=== PATIENT | female | born 1945 | race Caucasian/White ===

== ENCOUNTER 2018-11-30 07:40 | Emergency (ER) | payer MEDICARE, BC ==
[2018-11-30 07:50] VITALS: BP 169/126
[2018-11-30] MEDS ORDERED: Morphine 4 MG/ML VIAL (1 ml) 4 MG/ML VIAL IM ONE (08:14)
[2018-11-30] MEDS ORDERED: Lidocaine 2% 10 ML* VIAL INJ ONE (08:17)
[2018-11-30] MEDS ORDERED: Morphine 10 MG/ML VIAL (1 ml) ONE (08:18)
[2018-11-30] MEDS ORDERED: Lidocaine 2% PF * 5 ML VIAL ONE (08:21)
--- NOTE | 2018-11-30 08:55 | UC ---
Lower Extremity/Ankle HPI - HPI Summary HPI Summary: Left knee pain begain suddenly yesterday while standing in her home. No trauma or twisting. Typically she is very active and plays pickle ball 4x/wk. She then noticed a large joint swelling and she could not move. This morning she could barely move the knee again. No fever, immunocompromised status, not on chemo, not a diabetic. She has had arthroscopy on that knee for torn meniscus about 25 years ago. SHe is followed by [facility] for arthritis. She is on meloxicam. She denies blood thinners of any kind including aspirin. No prior gout. - History of Current Complaint Chief Complaint: UCLowerExtremity Stated Complaint: LEFT KNEE PAIN Time Seen by Provider: 11/30/18 07:42 Hx Obtained From: Patient, Family/Customer Care Team Coach ?: No Onset/Duration: Sudden Onset, Lasting Hours Severity Initially: Severe Severity Currently: Severe Pain Intensity: 10 Aggravating Factor(s): Standing, Ambulation Alleviating Factor(s): Rest Able to Bear Weight: No - Allergies/Home Medications Allergies/Adverse Reactions: Allergies Allergy/AdvReac Type Severity Reaction Status Date / Time No Known Allergies Allergy Verified 11/30/18 07:50 Home Medications: Home Medications Atorvastatin* [Lipitor*] 20 mg PO 1700 11/30/18 [History Confirmed 11/30/18] Ferrous Gluconate [Iron 27] 325 mg PO DAILY 11/30/18 [History Confirmed 11/30/18 ] Loratadine 10 mg PO DAILY 11/30/18 [History Confirmed 11/30/18] Meloxicam 7.5 mg PO DAILY 11/30/18 [History Confirmed 11/30/18] Multivitamin,Ther and Minerals [Vitamins & Minerals] 1 tab PO DAILY 11/30/18 [ History Confirmed 11/30/18] Ramipril 5 mg PO DAILY 11/30/18 [History Confirmed 11/30/18] PMH/Surg Hx/FS Hx/Imm Hx Previously Healthy: No - arthritis. - Surgical History Surgical History: Yes Surgery Procedure, Year, and Place: right knee - Family History Known Family History: Positive: Non-Contributory - Social History Lives: Alone Alcohol Use: Rare Substance Use Type: None Smoking Status (MU): Never Smoked Tobacco Review of Systems All Other Systems Reviewed And Are Negative: Yes Musculoskeletal: Positive: Arthralgia, Decreased ROM Physical Exam Triage Information Reviewed: Yes Appearance: Pain Distress, Thin Vital Signs: Initial Vital Signs Temp 98.2 F 11/30/18 07:43 Pulse 80 11/30/18 07:43 Resp 24 11/30/18 07:43 BP 169/126 11/30/18 07:43 Pulse Ox 100 11/30/18 07:43 Vital Signs Reviewed: Yes Eye Exam: Normal Eyes: Positive: Conjunctiva Clear ENT: Positive: Pharynx normal Neck: Positive: Supple, Nontender, No Lymphadenopathy Respiratory: Positive: Lungs clear, Normal breath sounds, No respiratory distress, No accessory muscle use. Negative: Respiratory distress, Decreased breath sounds, Accessory muscle use, Crackles, Rhonchi, Stridor Cardiovascular: Positive: No Murmur, Pulses Normal, Brisk Capillary Refill Abdomen Description: Positive: No Organomegaly, Soft. Negative: Distended, Guarding Musculoskeletal Exam: Other - Left knee positive ballotment. Not hot or red. There is pain with palpation and with any ROM testing. Neurological: Positive: Alert, Muscle Tone Normal. Negative: Fatigued Psychological: Positive: Age Appropriate Behavior. Negative: Decreased Age Appropriate Behavior Skin: Negative: Rashes Procedures - Procedure Summary Procedure Summary: Verbal and paper consent obtained with nurses and her friend in the room. We discussed possible complications including but not limited to introduction of infection, bleeding, worsening pain. Benefits are reduction of pain and for diagnostics purposes. Pt did not want to go to ED. Site and side and time out performed. Sterile technique throughout. 2ml of lidocaine 2% to numb the skin. 60cc syringe with 1.5inch 18 guage needle used to enter synovium anterior approach. 80 cc blood withdrawn. Fluid also had positive string sign. No obvious pus. 5cc of of lidocaine placed into the joint. NO complications. Lower Extremity Course/Dx - Course Course Of Treatment: Sudden onset left knee pain and effusion. NO risk factors for infection besides age. No clinical signs of infection as there was no fever or joint redness/ warmth. I discussed options and she refused to go to ED despite me tell her and her friend that accompanied her that delayed diagnosis of infection of the joint could have severe consequences. We reviewed these risks twice and she both times did not want to get transfered and did not hesitate with her decision. Time was given to answer all questions. INfection is very unlikely as fluid was almost entirely blood. We will get cell count hopefully later today. She agrees to go to ED immediatley for any signs of infection and these were described in detail. she agrees to f/u with her orthopedics doctor or Dr. dunn. - Differential Dx/Diagnosis Differential Diagnosis/HQI/PQRI: Arthritis, Contusion, Dislocation, DVT, Gout, Infection, Osteomyelitis, Septic Arthritis, Sprain, Strain, Tendonitis, Tenosynovitis Provider Diagnosis: Hemarthrosis Discharge - Sign-Out/Discharge Documenting (check all that apply): Patient Departure All imaging exams completed and their final reports reviewed: No Studies - Discharge Plan Condition: Good Disposition: HOME Prescriptions: HYDROcodone/ACETAMIN 5-325 MG* [[place] 5-325 TAB*] 1 tab PO Q6H PRN #30 tab MDD 4 PRN Reason: Pain Patient Education Materials: How to Transfer a Person Safely (DC), Hemarthrosis (ED), Swollen Knee Joint (ED), Knee Pain (ED) Referrals: No Primary Care Phys,NOPCP [Medical Doctor] - Silvestre Dunn MD [Medical Doctor] - Additional Instructions: Follow up with your orthopedic doctor or follow up with Dr. Dunn. - Billing Disposition and Condition Condition: GOOD Disposition: Home
[2018-11-30 09:54] LABS: Body Fluid Source Synovial Fluid
[2018-11-30 10:40] LABS: Body Fluid Mono 1 %
[2018-11-30 13:24] LABS: ABS Basophils 0 10^3/ul (0-0.2); ABS Eosinophils 0 10^3/ul (0-0.6); ABS Lymphocytes 0.6 10^3/ul (1.0-4.8); ABS Monocytes 0.4 10^3/ul (0-0.8); ABS Neutrophils 10.9 10^3/ul (1.5-7.7); ABS Nucleated RBC 0 10^3/ul; Eosinophil % 0 %; Hematocrit 39 % (33-41); Lymphocyte % 5.3 %; Mean Corpuscular HGB Conc 33 g/dL (31-36); Mean Corpuscular Hemoglobin 31 pg (27-31); Mean Corpuscular Volume 93 fL (80-97); Mean Platelet Volume 8.4 fL (7.4-10.4); Nucleated Red Blood Cells % 0; Platelet Count 325 10^3/uL (150-450); Red Blood Count 4.19 10^6 /uL (3.70-4.87); Red Cell Distribution Width 14 % (10.5-15)
[2018-11-30 13:34] LABS: Albumin 4.4 g/dL (3.2-5.2); Calcium 9.6 mg/dL (8.6-10.3); Total Bilirubin 0.6 mg/dL (0.2-1.0)
[2018-11-30 13:40] LABS: Albumin/Globulin Ratio 1.4 (1-3); BUN/Creatinine Ratio 20.8 (8-20); CRP High Sensitivity 0.39 mg/L (<2.00); EGFR African American 68.7 (>60); EGFR Non-African American 56.8 (>60); Globulin 3.1 g/dL (2-4); Total Protein 7.5 g/dL (6.4-8.9); Uric Acid 5.7 mg/dL (2.3-6.6)
[2018-11-30 14:27] LABS: Erythrocyte Sed Rate 23 mm/Hr (0-29)
--- NOTE | 2018-12-01 08:15 | UC ---
- Progress Note Progress Note: cultures MRSA neg, S. aureus neg cultures pending no change archanaj 12/01/18 Course/Dx - Diagnoses Provider Diagnoses: Hemarthrosis Discharge - Sign-Out/Discharge Documenting (check all that apply): Post-Discharge Follow Up All imaging exams completed and their final reports reviewed: No Studies - Discharge Plan Condition: Good Disposition: HOME Prescriptions: HYDROcodone/ACETAMIN 5-325 MG* [[place] 5-325 TAB*] 1 tab PO Q6H PRN #30 tab MDD 4 PRN Reason: Pain Patient Education Materials: Swollen Knee Joint (ED), Knee Pain (ED), Hemarthrosis (ED), How to Transfer a Person Safely (DC) Referrals: Silvestre Dunn MD [Medical Doctor] - No Primary Care Phys,NOPCP [Medical Doctor] - Additional Instructions: Follow up with your orthopedic doctor or follow up with Dr. Dunn. - Billing Disposition and Condition Condition: GOOD Disposition: Home
--- NOTE | 2018-12-02 15:59 | ED ---
Progress - Progress Note Progress Note: LDH not run do to hemolyzed specimen on joint aspiration. No change. Course/Dx - Diagnoses Provider Diagnoses: Hemarthrosis Discharge - Sign-Out/Discharge Documenting (check all that apply): Patient Departure All imaging exams completed and their final reports reviewed: No Studies - Discharge Plan Condition: Good Disposition: HOME Prescriptions: HYDROcodone/ACETAMIN 5-325 MG* [[place] 5-325 TAB*] 1 tab PO Q6H PRN #30 tab MDD 4 PRN Reason: Pain Patient Education Materials: Swollen Knee Joint (ED), Knee Pain (ED), Hemarthrosis (ED), How to Transfer a Person Safely (DC) Referrals: Silvestre Dunn MD [Medical Doctor] - No Primary Care Phys,NOPCP [Medical Doctor] - Additional Instructions: Follow up with your orthopedic doctor or follow up with Dr. Dunn. - Billing Disposition and Condition Condition: GOOD Disposition: Home
== END 2018-11-30 09:10 | disposition home or self-care (01) ==
LOC: UCCORT 07:40
DX: M25.062 Hemarthrosis, left knee (principal); Z79.1 Long term (current) use of non-steroidal anti-inflammatories (NSAID)
CPT/HCPCS: 20610; 36415; 80053; 82150; 83615; 84550; 85025; 85652; 86141; 87040; 87205; 87640; 87641; 89051; 89060; 99213; G0463; J2270